=== PATIENT | male | born 1970 | race Caucasian/White ===

== ENCOUNTER 2016-12-14 08:39 | Emergency (ER) | payer MEDICARE ==
[2016-12-14 10:10] LABS: HEMOGLOBIN 14.4 gm/dl (14.0-17.5); RED BLOOD COUNT 5.02 M/UL (4.20-5.50); WHITE BLOOD COUNT 3.4 K/UL (4.5-11.0)
[2016-12-14 10:47] LABS: BUN/CREATININE RATIO 19 (0-10)
== END 2016-12-14 14:40 | disposition home or self-care (01) ==
LOC: ER1 08:39
PROVIDERS: Physician Assistant
DX: R55 Syncope and collapse (principal); R11.0 Nausea; D69.6 Thrombocytopenia, unspecified; R42 Dizziness and giddiness; R51 Headache
CPT/HCPCS: 36415; 70450; 70551; 71010; 80053; 81001; 82550; 82553; 83874; 84484; 85025; 93005; 99284

== ENCOUNTER 2017-04-03 16:44 | Emergency (ER) | payer MEDICARE | END 2017-04-03 18:06 | disposition home or self-care (01) | LOC: ER1 16:44 | DX: S39.012A Strain of muscle, fascia and tendon of lower back, initial encounter (principal); W18.30XA Fall on same level, unspecified, initial encounter; Y93.K1 Activity, walking an animal; Z79.899 Other long term (current) drug therapy | CPT/HCPCS: 72100; 73030; 96372; 99283; J1885 ==

== ENCOUNTER 2021-11-04 15:10 | Emergency (ER) | payer OTHER ==
[2021-11-04 16:28] LABS: HEMOGLOBIN 12.8 gm/dl (14.0-17.5); RED BLOOD COUNT 4.43 M/UL (4.20-5.50); WHITE BLOOD COUNT 6.9 K/UL (4.5-11.0)
[2021-11-04 16:57] LABS: BUN/CREATININE RATIO 14 (0-10)
[2021-11-04] MEDS ORDERED: PREDNISONE 20 M20 MG PO (18:02)
[2021-11-04] MEDS ORDERED: CYCLOBENZAPRINE10 MG PO (18:03)
== END 2021-11-04 18:25 | disposition home or self-care (01) ==
LOC: ER1 15:10
PROVIDERS: Physician Assistant
DX: M54.12 Radiculopathy, cervical region (principal)
CPT/HCPCS: 70450; 72125; 80053; 82550; 82553; 83874; 84484; 85025; 93005; 99284

== ENCOUNTER → 2022-06-06 | Outpatient (CLI) | payer OTHER ==
[~2022-06-06] MED LIST: CYCLOBENZAPRINE10 MG PO; PREDNISONE 20 M20 MG PO
== END ==
LOC: EMI 05-29 13:00
DX: M54.2 Cervicalgia (principal); M47.812 Spondylosis without myelopathy or radiculopathy, cervical region; M48.02 Spinal stenosis, cervical region
CPT/HCPCS: 72141

== ENCOUNTER → 2022-06-16 | Outpatient (CLI) | payer OTHER | LOC: KOH-I 09:58 | DX: M54.50 Low back pain, unspecified (principal); M47.816 Spondylosis without myelopathy or radiculopathy, lumbar region | CPT/HCPCS: 72100 ==